=== PATIENT | female | born 2000 | race Hispanic/Latino ===

== ENCOUNTER 2020-12-09 16:13 | Emergency (ER) | payer MEDICARE ==
[~2020-12-09] VITALS: Ht 165.1 cm; Wt 53.1 kg
[2020-12-09] MEDS ORDERED: IBUPROFEN 600 MG TAB PO STA (16:58)
[2020-12-09] MEDS ORDERED: IBUPROFEN 600 MG TAB ONE (17:09)
== END 2020-12-09 17:17 | disposition home or self-care (01) ==
LOC: FSED 17:05
DX: R10.31 Right lower quadrant pain (principal); R10.32 Left lower quadrant pain; R11.0 Nausea; J45.909 Unspecified asthma, uncomplicated
CPT/HCPCS: 99283

== ENCOUNTER 2021-06-10 19:51 | Emergency (ER) | payer OTHER ==
[~2021-06-10] VITALS: Ht 165.1 cm; Wt 53.1 kg
[2021-06-10] MEDS ORDERED: PENICILLIN G BENZATHINE LA 1.2 MU TBX IM STA (20:13)
[2021-06-10] MEDS ORDERED: DEXAMETHASONE SOD PHOS 10 MG/1 ML VIAL IV ONE (20:15)
[2021-06-10] MEDS ORDERED: SODIUM CHLORIDE 0.9% 1000ML 1,000 ML IV ONE ×2 (20:15→21:30)
[2021-06-10] MEDS ORDERED: ACETAMINOPHEN 325 MG TAB PO ONE (20:15)
[2021-06-10] MEDS ORDERED: ACETAMINOPHEN 325 MG TAB ONE (20:37)
[2021-06-10] MEDS ORDERED: PENICILLIN G BENZATHINE LA 1.2 MU TBX ONE (20:38)
[2021-06-10] MEDS ORDERED: DEXAMETHASONE SOD PHOS 10 MG/1 ML VIAL ONE (20:38)
[2021-06-10 22:43] VITALS: BP 106/58
[2021-06-10] MEDS ORDERED: IBUPROFEN 600 MG TAB PO STA (22:43)
[2021-06-10] MEDS ORDERED: IBUPROFEN 600 MG TAB ONE (22:45)
== END 2021-06-10 22:58 | disposition home or self-care (01) ==
LOC: ER 20:31
DX: R50.9 Fever, unspecified (principal); J03.90 Acute tonsillitis, unspecified; J45.909 Unspecified asthma, uncomplicated
CPT/HCPCS: 99283; J0561; J1100; J7030

== ENCOUNTER 2021-11-18 15:04 | Emergency (ER) | payer OTHER ==
[~2021-11-18] VITALS: Ht 165.1 cm; Wt 53.1 kg
[2021-11-18] MEDS ORDERED: SODIUM CHLORIDE 0.9% 1000ML 1,000 ML ONE (15:41)
[2021-11-18] MEDS ORDERED: ONDANSETRON HCL INJ 2MG/ML 2ML 2 MG/ML VIAL IV PRN (15:45)
[2021-11-18] MEDS ORDERED: SODIUM CHLORIDE 0.9% 1000ML 1,000 ML IV ONE (15:45)
[2021-11-18 15:52] LABS: BASOPHILS % 0.2 % (0.0-1.0); EOSINOPHILS % 0.2 % (0.0-6.0); HEMATOCRIT 38.4 % (34.2-44.1); LYMPHOCYTES # (AUTO) 0.6 (1.0-3.2); MEAN CORPUSCULAR HEMOGLOBIN 30.7 pg (28-32); MEAN CORPUSCULAR HGB CONC 33.9 g/dL (31-35); MEAN CORPUSCULAR VOLUME 90.6 fL (81-99); MONOCYTES # (AUTO) 0.5 (0.2-0.8); MONOCYTES % 3.8 % (4.4-11.3); NEUTROPHILS # (AUTO) 11.6 (2.1-6.9); NEUTROPHILS % 90.3 % (38.7-80.0); PLATELET COUNT 209 x10e3/uL (140-360); RED BLOOD COUNT 4.24 x10e6/uL (3.6-5.1); RED CELL DISTRIBUTION WIDTH 13.3 % (11.7-14.4)
[2021-11-18 16:05] LABS: ALBUMIN 3.3 g/dL (3.5-5.0); ALBUMIN/GLOBULIN RATIO 0.8 (0.8-2.0); ANION GAP 11.7 mmol/L (8-16); CALCIUM 9.4 mg/dL (8.4-10.2); CREATININE, SERUM 0.67 mg/dL (0.57-1.11); POTASSIUM 3.7 mmol/L (3.5-5.1)
[2021-11-18] MEDS ORDERED: ONDANSETRON ODT4 MG PO (17:16)
[2021-11-18 17:34] LABS: CLARITY,URINE SL CLOUDY (CLEAR); COLOR,URINE AMBER (YELLOW); KETONES,URINE 2+ (NEGATIVE); LEUKOCYTE ESTERASE ,URINE NEGATIVE (NEGATIVE); NITRITE,URINE NEGATIVE (NEGATIVE); PROTEIN,URINE DIPSTICK NEGATIVE (NEGATIVE); URINE UROBILINOGEN 0.2 mg/dL (0.2 - 1)
[2021-11-18 17:46] LABS: BACTERIA,URINE MANY /HPF; RBC,URINE 0-5 /HPF (0-5)
[2021-11-18 18:41] VITALS: BP 104/66
== END 2021-11-18 18:43 | disposition home or self-care (01) ==
LOC: ER 15:20
DX: O99.611 Diseases of the digestive system complicating pregnancy, first trimester (principal); J45.909 Unspecified asthma, uncomplicated; R10.13 Epigastric pain
CPT/HCPCS: 36415; 76705; 76801; 80053; 81001; 84702; 85025; 93005; 99284; J7030